=== PATIENT | male | born 1965 | race Caucasian/White ===

== ENCOUNTER 2018-03-24 12:19 | Inpatient (IN) | payer MEDICAID ==
[~2018-03-24] VITALS: Ht 170.2 cm; Wt 69.1 kg
[2018-03-24 12:27] VITALS: Ht 170.2 cm; Wt 69.1 kg
[2018-03-24 13:07] LABS: BASOPHIL % 0.3 % (0-2); CALCIUM 8.4 mg/dL (8.5-10.1); CARBON DIOXIDE 30.5 mmol/L (21-32); CHLORIDE SERUM 102 mmol/L (98-107); CREATININE SERUM 0.3 mg/dL (0.7-1.3); GFR1 > 60 mL/min; GLUCOSE SERUM 83 mg/dL (74-106); PLATELET COUNT 386 x10^3mcL (130-400); POTASSIUM SERUM 4.2 mmol/L (3.5-5.1); SODIUM SERUM 138 mmol/L (136-145)
[2018-03-24 13:12] LABS: ALKALINE PHOSPHATASE 96 U/L (46-116); ALT/SGPT 22 U/L (16-63); AST/SGOT 12 U/L (15-37); TOTAL PROTEIN, SERUM 6.9 g/dL (6.4-8.2)
[2018-03-24 13:13] LABS: RED CELL DISTRIBUTION WIDTH 16.4 % (11.5-14.5)
[2018-03-24 14:41] LABS: T3 TOTAL 1.27 ng/mL
[2018-03-24 14:46] LABS: MAGNESIUM 1.9 mg/dL (1.8-2.4); PHOSPHOROUS 3.3 mg/dL (2.5-4.9)
[2018-03-24 14:51] LABS: CHOLESTEROL/HDL RATIO 2.6
[2018-03-24] MEDS ORDERED: PULMICORT0.5 MG/2 M NEB (15:17)
[2018-03-24] MEDS ORDERED: ATROVENT H0.017 MG/1 NEB (15:21)
[2018-03-24] MEDS ORDERED: CENTRUM ADULTS1 EACH GT (15:23)
[2018-03-24] MEDS ORDERED: ALBUTEROL0.63 MG/3 NEB (15:25)
[2018-03-24] MEDS ORDERED: GLACIAL ACETIC A1 ML AU (15:28)
[2018-03-24] MEDS ORDERED: PROTONIX40 MG/Pac1 GT (15:31)
[2018-03-24] MEDS ORDERED: BIOTIN300 MCG GT (15:32)
[2018-03-24] MEDS ORDERED: ZIN GT (15:33)
[2018-03-24] MEDS ORDERED: KEPPRA100 MG/M1 GT (15:35)
[2018-03-24] MEDS ORDERED: PROBIOTIC FORM1 EACH GT (15:36)
[2018-03-24] MEDS ORDERED: CARDIOVID PLUS1 SGL GT (15:37)
[2018-03-24] MEDS ORDERED: PRO-STAT AWC LI30 ML GT (15:38)
[2018-03-24] MEDS ORDERED: FEROSUL220 MG/5 M GT (15:39)
[2018-03-24] MEDS ORDERED: GLYCOPYRROLATE2 MG GT (15:41)
[2018-03-24] MEDS ORDERED: SIMETHICONE100 ML GT (15:44)
[2018-03-24] MEDS ORDERED: ARTIFICIAL TEAR15 M1 (15:44)
[2018-03-24] MEDS ORDERED: MONTELUKAST SOD10 M1 GT (15:45)
[2018-03-24] MEDS ORDERED: FLOMAX0.4 MG GT (15:46)
[2018-03-24] MEDS ORDERED: CALCITONIN (15:49)
[2018-03-24] MEDS ORDERED: VITAMIN C GT (15:50)
[2018-03-24 16:11] LABS: FREE T4 1.33 ng/dL (0.76-1.46); FREE THYROXINE INDEX 3.3 ug/dL (1.4-4.5); T4(THYROXINE) 9.2 ug/dL (4.7-13.3)
[2018-03-24 17:16] VITALS: BP 103/74
[2018-03-24] MEDS ORDERED: BENADRYL ALLERG25 M1 GT (17:56)
[2018-03-24 18:00] VITALS: BP 103/74
[2018-03-24] MEDS ORDERED: ATIVAN0.5 M1 GT (18:01)
[2018-03-24 21:35] LABS: microscopic required? NO
[2018-03-24 21:44] LABS: UA SPECIFIC GRAVITY 1.015 (1.005-1.035); urine erythrocyte NEGATIVE (NEGATIVE)
[2018-03-24 21:54] LABS: AMPHETAMINE QUAL UR NONE DETECTED (See below)
[2018-03-25 05:55] VITALS: BP 94/56
[2018-03-25 06:41] LABS: CALCIUM 8.2 mg/dL (8.5-10.1); CARBON DIOXIDE 29.7 mmol/L (21-32); CHLORIDE SERUM 105 mmol/L (98-107); CREATININE SERUM 0.3 mg/dL (0.7-1.3); GFR1 > 60 mL/min; GLUCOSE SERUM 102 mg/dL (74-106); MAGNESIUM 1.8 mg/dL (1.8-2.4); PHOSPHOROUS 4.4 mg/dL (2.5-4.9); POTASSIUM SERUM 3.7 mmol/L (3.5-5.1); SODIUM SERUM 143 mmol/L (136-145)
[2018-03-25 07:02] LABS: BASOPHIL % 0.1 % (0-2); PLATELET COUNT 354 x10^3mcL (130-400)
[2018-03-25 09:48] VITALS: BP 99/69
[2018-03-25 21:11] VITALS: BP 96/67
[2018-03-25 21:50] VITALS: BP 96/67
[2018-03-26] VITALS (9 sets, daily range): BP systolic 12–126; BP diastolic 52–77
[2018-03-26 06:26] LABS: CALCIUM 7.9 mg/dL (8.5-10.1); CARBON DIOXIDE 22.6 mmol/L (21-32); CHLORIDE SERUM 116 mmol/L (98-107); CREATININE SERUM 0.4 mg/dL (0.7-1.3); GFR1 > 60 mL/min; GLUCOSE SERUM 124 mg/dL (74-106); MAGNESIUM 2.3 mg/dL (1.8-2.4); PHOSPHOROUS 2.9 mg/dL (2.5-4.9); SODIUM SERUM 154 mmol/L (136-145)
[2018-03-26 06:40] LABS: PLATELET COUNT 343 x10^3mcL (130-400)
[2018-03-26 06:58] LABS: POTASSIUM SERUM 2.3 mmol/L (3.5-5.1)
[2018-03-26 07:05] LABS: BASOPHIL % 0 % (0-2); RED CELL DISTRIBUTION WIDTH 16.3 % (11.5-14.5)
[2018-03-26 12:48] LABS: CARBON DIOXIDE 24.9 mmol/L (21-32); CHLORIDE SERUM 120 mmol/L (98-107); CREATININE SERUM 0.4 mg/dL (0.7-1.3); GFR1 > 60 mL/min; GLUCOSE SERUM 164 mg/dL (74-106); POTASSIUM SERUM 3.6 mmol/L (3.5-5.1); SODIUM SERUM 156 mmol/L (136-145)
[2018-03-27] VITALS (9 sets, daily range): BP systolic 100–130; BP diastolic 62–91
[2018-03-27 07:04] LABS: BASOPHIL % 0.2 % (0-2); PLATELET COUNT 317 x10^3mcL (130-400)
[2018-03-27 07:07] LABS: CALCIUM 8.4 mg/dL (8.5-10.1); CARBON DIOXIDE 21.6 mmol/L (21-32); CHLORIDE SERUM 124 mmol/L (98-107); CREATININE SERUM 0.6 mg/dL (0.7-1.3); GFR1 > 60 mL/min; GLUCOSE SERUM 117 mg/dL (74-106); MAGNESIUM 2.4 mg/dL (1.8-2.4); PHOSPHOROUS 2.4 mg/dL (2.5-4.9); POTASSIUM SERUM 3.7 mmol/L (3.5-5.1); SODIUM SERUM 158 mmol/L (136-145)
[2018-03-27 07:16] LABS: RED CELL DISTRIBUTION WIDTH 16.4 % (11.5-14.5)
[2018-03-28] VITALS (8 sets, daily range): BP systolic 95–116; BP diastolic 57–70
[2018-03-28 06:05] LABS: BASOPHIL % 0.3 % (0-2); PLATELET COUNT 272 x10^3mcL (130-400)
[2018-03-28 06:38] LABS: CALCIUM 8.4 mg/dL (8.5-10.1); CHLORIDE SERUM 122 mmol/L (98-107); CREATININE SERUM 0.5 mg/dL (0.7-1.3); GFR1 > 60 mL/min; GLUCOSE SERUM 144 mg/dL (74-106); MAGNESIUM 1.9 mg/dL (1.8-2.4); PHOSPHOROUS 2.4 mg/dL (2.5-4.9); POTASSIUM SERUM 3.3 mmol/L (3.5-5.1); SODIUM SERUM 156 mmol/L (136-145)
[2018-03-28 06:48] LABS: RED CELL DISTRIBUTION WIDTH 16.3 % (11.5-14.5)
[2018-03-29] VITALS (7 sets, daily range): BP systolic 94–96; BP diastolic 53–60
[2018-03-29 07:12] LABS: CALCIUM 7.8 mg/dL (8.5-10.1); CARBON DIOXIDE 23.5 mmol/L (21-32); CHLORIDE SERUM 118 mmol/L (98-107); CREATININE SERUM 0.5 mg/dL (0.7-1.3); GFR1 > 60 mL/min; GLUCOSE SERUM 188 mg/dL (74-106); MAGNESIUM 1.6 mg/dL (1.8-2.4); PHOSPHOROUS 3.5 mg/dL (2.5-4.9); POTASSIUM SERUM 3.2 mmol/L (3.5-5.1); SODIUM SERUM 152 mmol/L (136-145)
[2018-03-29 07:20] LABS: BASOPHIL % 0.1 % (0-2); PLATELET COUNT 264 x10^3mcL (130-400)
[2018-03-29 07:27] LABS: RED CELL DISTRIBUTION WIDTH 16.4 % (11.5-14.5)
[2018-03-29] MEDS ORDERED: [UNRECOGNIZED DRUG - OTHER] GT (08:52)
[2018-03-29] MEDS ORDERED: FLA500 GT (08:59)
[2018-03-29] MEDS ORDERED: ASA400 PO (09:00)
== END 2018-03-29 11:45 | DRG 720 ==
LOC: ED 12:19 → DU 13:40
PROVIDERS: Family Medicine; Family Medicine Sports Medicine; Internal Medicine Gastroenterology; Radiology Diagnostic Radiology; Specialist
PROC: 0DBN8ZX Excision of Sigmoid Colon, Via Natural or Artificial Opening Endoscopic, Diagnostic (ICD-10-PCS; 2018-03-27)
PROC: 0DB68ZX Excision of Stomach, Via Natural or Artificial Opening Endoscopic, Diagnostic (ICD-10-PCS; principal; 2018-03-27 08:30)
PROC: 0DBM8ZX Excision of Descending Colon, Via Natural or Artificial Opening Endoscopic, Diagnostic (ICD-10-PCS; 2018-03-27 08:30)
PROC: 0DBL8ZX Excision of Transverse Colon, Via Natural or Artificial Opening Endoscopic, Diagnostic (ICD-10-PCS; 2018-03-27 08:30)
DX: A41.9 Sepsis, unspecified organism (principal); N17.0 Acute kidney failure with tubular necrosis; G82.50 Quadriplegia, unspecified; E43 Unspecified severe protein-calorie malnutrition; Z93.0 Tracheostomy status; A04.72 Enterocolitis due to Clostridium difficile, not specified as recurrent; J90 Pleural effusion, not elsewhere classified; N13.2 Hydronephrosis with renal and ureteral calculous obstruction; J44.9 Chronic obstructive pulmonary disease, unspecified; K21.9 Gastro-esophageal reflux disease without esophagitis; M81.0 Age-related osteoporosis without current pathological fracture; E78.5 Hyperlipidemia, unspecified; Z53.8 Procedure and treatment not carried out for other reasons; G40.909 Epilepsy, unspecified, not intractable, without status epilepticus; D64.9 Anemia, unspecified; K50.90 Crohn's disease, unspecified, without complications; K40.90 Unilateral inguinal hernia, without obstruction or gangrene, not specified as recurrent; E83.42 Hypomagnesemia; E83.39 Other disorders of phosphorus metabolism
CPT/HCPCS: 43235; 43760; 45378; 50432; 83880; 84439; C1758; C1884; C9113; J1940; J1956; J2001; J2250; J2704; J2710; J2765; J3010; J3480; J3490; J7030; J7050; J7120; J7613; J7620; J7626; J7644; Q0092; Q9967

== ENCOUNTER 2019-03-15 19:52 | Emergency (ER) | payer MEDICAID ==
[~2019-03-15] VITALS: Ht 172.7 cm; Wt 73.9 kg
[~2019-03-15 19:52] MED LIST: ALBUTEROL0.63 MG/3 NEB; ARTIFICIAL TEAR15 M1; ASA400 PO; ATIVAN0.5 M1 GT; ATROVENT H0.017 MG/1 NEB; BENADRYL ALLERG25 M1 GT; BIOTIN300 MCG GT; CALCITONIN; CARDIOVID PLUS1 SGL GT; CENTRUM ADULTS1 EACH GT; FEROSUL220 MG/5 M GT; FLA500 GT; FLOMAX0.4 MG GT; GLACIAL ACETIC A1 ML AU; GLYCOPYRROLATE2 MG GT; KEPPRA100 MG/M1 GT; MONTELUKAST SOD10 M1 GT; PRO-STAT AWC LI30 ML GT; PROBIOTIC FORM1 EACH GT; PROTONIX40 MG/Pac1 GT; PULMICORT0.5 MG/2 M NEB; SIMETHICONE100 ML GT; VITAMIN C GT; ZIN GT; [UNRECOGNIZED DRUG - OTHER] GT
[2019-03-15 20:58] LABS: BASOPHIL % 0.2 % (0-2); PLATELET COUNT 132 x10^3mcL (130-400); RED CELL DISTRIBUTION WIDTH 14.3 % (11.5-14.5)
[2019-03-15 21:06] LABS: CALCIUM 9.2 mg/dL (8.5-10.1); CHLORIDE SERUM 101 mmol/L (98-107); CREATININE SERUM 0.6 mg/dL (0.7-1.3); GFR1 > 60 mL/min; GLUCOSE SERUM 132 mg/dL (74-106); POTASSIUM SERUM 4.2 mmol/L (3.5-5.1); SODIUM SERUM 139 mmol/L (136-145)
[2019-03-15 21:11] LABS: ALBUMIN 3.4 g/dL (3.4-5.0); ALKALINE PHOSPHATASE 143 U/L (46-116); ALT/SGPT 84 U/L (16-63); AST/SGOT 20 U/L (15-37); BILIRUBIN TOTAL 0.4 mg/dL (0.20-1.00); TOTAL PROTEIN, SERUM 7.4 g/dL (6.4-8.2)
[2019-03-16 00:52] VITALS: BP 107/69
== END 2019-03-16 00:52 | disposition home or self-care (01) ==
LOC: ED 19:52
PROVIDERS: Emergency Medicine
DX: J44.9 Chronic obstructive pulmonary disease, unspecified (principal); G80.9 Cerebral palsy, unspecified; D64.9 Anemia, unspecified; K21.9 Gastro-esophageal reflux disease without esophagitis; M81.0 Age-related osteoporosis without current pathological fracture; Z98.890 Other specified postprocedural states; Z88.1 Allergy status to other antibiotic agents
CPT/HCPCS: 83880; J2930; J7620; Q0092